=== PATIENT | female | born 1945 | race Caucasian/White ===

== ENCOUNTER → 2018-10-09 | Outpatient (CLI) | payer OTHER ==
[~2018-10-09] MED LIST: ACET-66; ALBU8.5H8 IH; AUD IH; BUDE10.2 IH; CALC-190 PO; DILT120T PO; HYDR-4060 PO; HYDR25TA PO; LEVO50 PO; LISI-613 PO; MONT10TA21 PO; OMEG300C3 PO; OMEP40CA37 PO; PRAV40TA3 PO; TOPI200T16 PO; VIT B12 PO
== END | disposition home or self-care (01) ==
LOC: RAH 08:22
PROVIDERS: ATTEND Internal Medicine Critical Care Medicine
DX: I31.3 Pericardial effusion (noninflammatory) (principal)
CPT/HCPCS: 93306

== ENCOUNTER 2018-10-24 07:11 | Day surgery (SDC) | payer OTHER ==
[~2018-10-24] VITALS: Ht 160 cm; Wt 103.9 kg
[~2018-10-24 07:11] MED LIST changes: -ACET-66; -BUDE10.2 IH; +CLON0.2T PO; -DILT120T PO; +FLUT1DIS5 IH; -HYDR-4060 PO; -LISI-613 PO; -OMEG300C3 PO; +SODIUM CHLORIDE 0.9% 1000ML 1,000 ML IV ONE; +TIOT18CA3 IH; -TOPI200T16 PO
[2018-10-24 07:56] VITALS: BP 157/48
[2018-10-24] MEDS ORDERED: PROPOFOL 10 MG/ML 20ML VIAL IV ONE (09:05)
[2018-10-24 09:10] VITALS: BP 106/46
[2018-10-24 09:15] VITALS: BP 107/52
[2018-10-24 09:20] VITALS: BP 109/46
[2018-10-24 09:25] VITALS: BP 128/52
[2018-10-24 09:30] VITALS: BP 154/63
== END 2018-10-24 09:40 | disposition home or self-care (01) ==
LOC: ENDO 07:11 → DAH 07:11 → ENDO 09:40
PROVIDERS: ATTEND Internal Medicine
DX: K29.50 Unspecified chronic gastritis without bleeding (principal); K31.7 Polyp of stomach and duodenum; K22.9 Disease of esophagus, unspecified; I10 Essential (primary) hypertension; E78.5 Hyperlipidemia, unspecified; E03.9 Hypothyroidism, unspecified; K21.9 Gastro-esophageal reflux disease without esophagitis; J44.9 Chronic obstructive pulmonary disease, unspecified; G47.30 Sleep apnea, unspecified; F15.90 Other stimulant use, unspecified, uncomplicated; Z79.899 Other long term (current) drug therapy; Z90.710 Acquired absence of both cervix and uterus; Z90.49 Acquired absence of other specified parts of digestive tract; Z96.653 Presence of artificial knee joint, bilateral; Z72.89 Other problems related to lifestyle; Z87.891 Personal history of nicotine dependence; Z85.118 Personal history of other malignant neoplasm of bronchus and lung; Z86.010 Personal history of colon polyps; Z98.890 Other specified postprocedural states; Z82.5 Family history of asthma and other chronic lower respiratory diseases; Z82.49 Family history of ischemic heart disease and other diseases of the circulatory system; Z83.3 Family history of diabetes mellitus; Z82.3 Family history of stroke
CPT/HCPCS: 43239; 88305; 93005; A4606; J2704; J7030

== ENCOUNTER → 2022-05-30 | Outpatient (CLI) | payer OTHER ==
[~2022-05-30] MED LIST changes: +OMEP40CA21 PO; -OMEP40CA37 PO; -SODIUM CHLORIDE 0.9% 1000ML 1,000 ML IV ONE
== END | disposition home or self-care (01) ==
LOC: SHCH 10:39
PROVIDERS: ATTEND Internal Medicine
DX: R07.9 Chest pain, unspecified (principal); I10 Essential (primary) hypertension; E78.5 Hyperlipidemia, unspecified
CPT/HCPCS: 93306

== ENCOUNTER → 2022-06-13 | Outpatient (CLI) | payer OTHER ==
[~2022-06-13] MED LIST changes: +MONT-46 PO; -MONT10TA21 PO; +REGADENOSON 0.4 MG/5 ML PF SYG IVP ONE
== END | disposition home or self-care (01) ==
LOC: SHCH 07:39
PROVIDERS: ATTEND Internal Medicine
DX: R94.39 Abnormal result of other cardiovascular function study (principal); R07.9 Chest pain, unspecified; I10 Essential (primary) hypertension
CPT/HCPCS: 78452; 96374; 93017; J2785; A9500 ×2

== ENCOUNTER 2022-07-07 13:48 | Observation (INO) | payer OTHER ==
[2022-07-05 13:19] LABS: BASOPHILS % (AUTO) 0.7 % (0.0-5.0); HEMATOCRIT 42.8 % (36-48); LYMPHOCYTES % (AUTO) 27.8 % (21.0-51.0); MEAN CORPUSCULAR HEMOGLOBIN 27.6 pg (27.0-33.0); MEAN CORPUSCULAR HGB CONC 31.3 g/dL (32.0-36.0); MEAN CORPUSCULAR VOLUME 88.2 fL (79-99); MONOCYTES % (AUTO) 10.7 % (3.0-13.0); NEUTROPHILS % (AUTO) 54.8 % (40.0-77.0); PLATELET COUNT (AUTO) 312 K/uL (130-400); RED BLOOD CELL COUNT(AUTO) 4.85 MIL/uL (4.00-5.50); RED CELL DISTRIBUTION WIDTH 14.4 % (11.0-15.5); WHITE BLOOD COUNT (AUTO) 11.5 K/uL (4.8-10.8)
[2022-07-05 13:28] LABS: INR 0.93 (0.85-1.15)
[2022-07-05 13:29] LABS: CREATININE 1.2 mg/dL (0.5-1.5); POTASSIUM 3.9 mmol/L (3.5-5.1)
[2022-07-05 13:30] LABS: PARTIAL THROMBOPLASTIN TIME 30.5 SEC (26.3-35.5)
[2022-07-05 13:48] VITALS: BP 140/57
[2022-07-05 13:59] LABS: B-TYPE NATRIURETIC PEPTIDE 12 pg/mL (0-100)
[~2022-07-07] VITALS: Ht 162.6 cm; Wt 101.0 kg
[2022-07-07 12:00] VITALS: BP 170/77
[~2022-07-07 13:48] MED LIST changes: +0.9%NACL 1000ML 1,000 ML IV ONE; +AMLO2.5T4 PO; +ASPI-1443 PO; -AUD IH; +DILT240C46 PO; +FENTANYL CITRATE PF 50 MCG/1 ML 2ML VIAL ONE; +HEPARIN 10,000 UNIT/10ML (1,000 UNIT/ML) VIAL ONE; +IOHEXOL 350 MG/ML 100ML INFUS..BTL IV ONE; -LEVO50 PO; +LEVO75TA10 PO; +LIDOCAINE HCL 400MG/20ML VIAL ONE; +MIDAZOLAM HCL 1 MG/ML 2ML VIAL ONE; +NITROGLYCERIN 50MG VIAL ONE; -PRAV40TA3 PO; -REGADENOSON 0.4 MG/5 ML PF SYG IVP ONE; +ROSU5TAB12 PO; +TOPI50TA PO; +VERAPAMIL HCL 2.5 MG/ML VIAL ONE; +VITA400T9 PO
[2022-07-07] MEDS ORDERED: TICAGRELOR 90 MG TABLET ONE (15:00)
[2022-07-07] MEDS ORDERED: IOHEXOL-350 50ML VIAL IV ONE (16:00)
[2022-07-07] MEDS ORDERED: DEXTROSE 50%-WATER 50 ML DISP.SYRIN IV PRN (16:30)
[2022-07-07] MEDS ORDERED: ACETAMINOPHEN 325 MG TAB PO PRN (16:30)
[2022-07-07] MEDS ORDERED: HYDRALAZINE 20MG/ML VIAL IV PRN (16:30)
[2022-07-07] MEDS ORDERED: GLUCAGON 1MG KIT 1 MG ML IM PRN (16:30)
[2022-07-07] MEDS ORDERED: ACETAMINOPHEN WITH CODEINE 1 TAB TAB PO PRN (16:30)
[2022-07-07] MEDS ORDERED: NITROGLYCERIN 0.4 MG SL TAB SL PRN (16:30)
[2022-07-07] MEDS ORDERED: 0.9%NACL 1000ML 1,000 ML IV SCH (16:30)
[2022-07-07 17:15] VITALS: BP 132/62
[2022-07-07 20:00] VITALS: BP 154/62
[2022-07-07] MEDS: TICAGRELOR 90 MG TABLET PO SCH (20:39)
[2022-07-07 23:00] VITALS: BP 170/74
[2022-07-08 04:00] VITALS: BP 156/65
[2022-07-08 04:03] LABS: HEMATOCRIT 40.5 % (36-48); MEAN CORPUSCULAR HEMOGLOBIN 27.7 pg (27.0-33.0); MEAN CORPUSCULAR HGB CONC 32.1 g/dL (32.0-36.0); MEAN CORPUSCULAR VOLUME 86.2 fL (79-99); RED BLOOD CELL COUNT(AUTO) 4.7 MIL/uL (4.00-5.50); RED CELL DISTRIBUTION WIDTH 14.3 % (11.0-15.5); WHITE BLOOD COUNT (AUTO) 11.8 K/uL (4.8-10.8)
[2022-07-08 04:22] LABS: CREATININE 1.3 mg/dL (0.5-1.5)
[2022-07-08 04:31] LABS: POTASSIUM 2.8 mmol/L (3.5-5.1)
[2022-07-08] MEDS ORDERED: KCL 20 MEQ ERTAB PO ONE ×2 (05:00→10:00)
[2022-07-08 06:42] VITALS: BP 150/78
[2022-07-08] MEDS ORDERED: ASPIRIN 81MG CHEW TAB PO SCH (09:00)
[2022-07-08] MEDS: TICAGRELOR 90 MG TABLET PO SCH (09:17)
[2022-07-08] MEDS ORDERED: DILTIAZEM 120MG SR CAP PO SCH (09:46)
[2022-07-08] MEDS ORDERED: TICA90TA PO (09:49)
[2022-07-08] MEDS ORDERED: MAGN400T7 PO (09:49)
[2022-07-08] MEDS ORDERED: CLONIDINE HCL 0.2 MG TABLET PO SCH (21:00)
[2022-07-09] MEDS ORDERED: AMLODIPINE 2.5 MG TAB PO SCH (09:00)
[2022-07-09] MEDS ORDERED: HYDROCHLOROTHIAZIDE 25 MG TABLET PO SCH (09:00)
== END 2022-07-08 11:30 | disposition home or self-care (01) ==
LOC: DAH 13:48 → DAHIP 13:49 → DAH 13:50 → 2DH 17:13
PROVIDERS: ADMIT Internal Medicine; ATTEND Internal Medicine
DX: I25.10 Atherosclerotic heart disease of native coronary artery without angina pectoris (principal); I10 Essential (primary) hypertension; E87.6 Hypokalemia; Z85.118 Personal history of other malignant neoplasm of bronchus and lung; Z79.899 Other long term (current) drug therapy
CPT/HCPCS: 80048 ×2; 83880; 85025; 85610; 85730; 36415 ×4; 71045; 93005 ×2; 92978; 92920; 0715T; 93458; 85347 ×2; 83735; 84132; 85027; C1769 ×2; C1887; C1894; C1761; C1753; C1874; C1725; Q9965 ×2; G0378 ×18; J3010; J3490 ×3; J7030; J1644 ×2; J2250; Q9967; A4215; A4223 ×3; A4222; A4221; A4663; A4216; A4606; C9600; 99156; 99157

== ENCOUNTER → 2023-02-08 | Outpatient (CLI) | payer OTHER ==
[~2023-02-08] MED LIST changes: -0.9%NACL 1000ML 1,000 ML IV ONE; -FENTANYL CITRATE PF 50 MCG/1 ML 2ML VIAL ONE; -HEPARIN 10,000 UNIT/10ML (1,000 UNIT/ML) VIAL ONE; -IOHEXOL 350 MG/ML 100ML INFUS..BTL IV ONE; -LIDOCAINE HCL 400MG/20ML VIAL ONE; +MAGN400T7 PO; -MIDAZOLAM HCL 1 MG/ML 2ML VIAL ONE; -NITROGLYCERIN 50MG VIAL ONE; +TICA90TA PO; -VERAPAMIL HCL 2.5 MG/ML VIAL ONE
[2023-02-08 16:26] LABS: CREATININE 1.5 mg/dL (0.5-1.5); POTASSIUM 3.5 mmol/L (3.5-5.1)
== END | disposition home or self-care (01) ==
LOC: LAB 13:04
PROVIDERS: ATTEND Internal Medicine
DX: I25.10 Atherosclerotic heart disease of native coronary artery without angina pectoris (principal)
CPT/HCPCS: 36415; 80048

== ENCOUNTER → 2024-08-12 | Outpatient (CLI) | payer OTHER ==
[~2024-08-12] MED LIST changes: -ROSU5TAB12 PO; +ROSU5TAB51 PO
--- NOTE | 2024-08-12 09:16 | HMCIMG ---
DEXA BONE DENSITY SURVEY HISTORY: No additional history given. COMPARISON: None FINDINGS: Bone densitometry study was performed. Bone mineral density of the lumbar spine is 1.1 gram per centimeter square which corresponds to a T score of 0.5 and a Z score of 3.0. Bone mineral density of the left hip is 0.946 grams per centimeter square which corresponds to a T score of 0.0 and a Z score of 1.9. IMPRESSION: 1. Normal bone mineral density of the lumbar spine and left hip.
== END | disposition home or self-care (01) ==
LOC: RAH 07:55
PROVIDERS: ATTEND Internal Medicine
DX: Z78.0 Asymptomatic menopausal state (principal)
CPT/HCPCS: 77080